=== PATIENT | female | born 1980 | race Caucasian/White ===

== ENCOUNTER 2024-10-14 14:39 | Emergency (ER) | payer MEDICAID, OTHER ==
[~2024-10-14] VITALS: Ht 157.5 cm; Wt 69.0 kg
[2024-10-14 14:41] VITALS: O2SAT 99
[2024-10-14 15:39] LABS: BASOPHILS % 0.6 % (0.0-2.0); EOSINOPHILS % 2.6 % (0.0-5.0); HEMATOCRIT. 36.3 % (36.0-48.0); HEMOGLOBIN. 12.2 g/dL (12.0-16.0); MEAN CORPUSCULAR HEMOGLOBIN 32.3 pg (28.0-32.0); MEAN CORPUSCULAR HGB CONC 33.6 g/dL (31.0-37.0); MEAN PLATELET VOLUME 7.8 fl (7.4-10.4); MONOCYTES % 7.3 % (2.0-8.0); NEUTROPHILS % 66.5 % (40.0-76.0); PLATELET 316 x1000/uL (130-400); RED BLOOD CELL COUNT 3.78 mill/uL (4.2-5.4); RED CELL DISTRIBUTION WIDTH 13.2 % (11.6-14.6); WHITE BLOOD COUNT 8.9 x1000/uL (4.5-11.0)
[2024-10-14 15:48] LABS: CHLORIDE 105 mEq/L (98-107); POTASSIUM 3.9 mEq/L (3.5-5.1); SODIUM 137 mEq/L (136-145)
[2024-10-14 15:49] LABS: CARBON DIOXIDE 26 mEq/L (21-32)
[2024-10-14 15:50] LABS: CALCIUM 9.7 mg/dL (8.7-10.4)
[2024-10-14 15:54] LABS: GLUCOSE 145 mg/dL (70-105); UREA NITROGEN BLOOD 12 mg/dL (9-23)
[2024-10-14 15:55] LABS: ETHANOL BLOOD < 10 mg/dL (<10)
[2024-10-14 15:55] LABS: CLARITY URINE CLEAR (CLEAR); COLOR URINE YELLOW (YELLOW); GLUCOSE URINE NEGATIVE (NEGATIVE); KETONES URINE NEGATIVE (NEGATIVE); LEUKOCYTE ESTERASE URINE TRACE (NEGATIVE); NITRITE URINE NEGATIVE (NEGATIVE); OCCULT BLOOD URINE NEGATIVE (NEGATIVE); PROTEIN URINE NEGATIVE (NEGATIVE); SPECIFIC GRAVITY URINE 1.009 (1.005-1.030); UROBILINOGEN URINE 0.2 E.U./dL (0.2-1.0)
[2024-10-14 15:56] LABS: ACETAMINOPHEN < 2 ug/mL (10-30)
[2024-10-14 16:14] LABS: *AMPHETAMINES SCREEN URINE NEGATIVE (NEGATIVE); *BARBITURATES SCREEN URINE NEGATIVE (NEGATIVE); *BENZODIAZEPINES SCREEN URINE NEGATIVE (NEGATIVE); *COCAINE SCREEN URINE NEGATIVE (NEGATIVE); CANNABINOID URINE SCREEN NEGATIVE (NEGATIVE); ECSTASY MDMA SCREEN URINE NEGATIVE (NEGATIVE); METHADONE URINE SCREEN NEGATIVE (NEGATIVE); OPIATES URINE SCREEN NEGATIVE (NEGATIVE); PHENCYCLIDINE URINE SCREEN NEGATIVE (NEGATIVE)
[2024-10-14 17:28] LABS: BACTERIA URINE TRACE; RBC URINE 0-2 /hpf (0-2); SQUAMOUS EPITHELIAL CELL URINE FEW /lpf (RARE/1+); WBC URINE 0-2 /hpf (0-2)
[2024-10-14 18:57] LABS: ALANINE AMINOTRANSFERASE 16 IU/L (10-49); ALBUMIN 4.2 g/dL (3.2-4.8); ASPARTATE AMINOTRANSFERASE 27 IU/L (<34); BILIRUBIN DIRECT 0.1 mg/dL (<=3.0)
[2024-10-14 18:58] LABS: BILIRUBIN TOTAL 0.5 mg/dL (0.1-1.0); PROTEIN TOTAL 7.6 g/dL (6.0-8.3)
[2024-10-14 19:12] LABS: HCG SCREEN NEGATIVE
[2024-10-14] MEDS ORDERED: LORAZEPAM 2MG/ML INJ IM ONE (22:45)
[2024-10-14] MEDS: LORAZEPAM 2MG/ML UD SYRINGE IM NR (22:55)
[2024-10-14] MEDS: IBUPROFEN 400MG TABLET PO ONE (22:55)
[2024-10-15] MEDS: OLANZAPINE 10 MG/VIAL IM ONE (03:33)
[2024-10-15] MEDS: HALOPERIDOL LACTATE 5MG/ML VIAL IM ONE ×2 (06:15→21:18)
[2024-10-15] MEDS: DIPHENHYDRAMINE 50MG/ML VIAL IM ONE (06:15)
[2024-10-15] MEDS: OLANZAPINE 5MG TABLET ODT PO ONE (11:02)
[2024-10-15] MEDS ORDERED: LITHIUM CARBONATE 150 MG CAPSULE PO STA (15:30)
[2024-10-15] MEDS ORDERED: HYDROXYZINE 25MG TABLET PO STA (15:30)
[2024-10-15] MEDS ORDERED: TRAZODONE HCL 50MG TABLET PO STA (15:30)
[2024-10-15] MEDS ORDERED: RISPERIDONE 1MG TABLET PO STA (15:30)
[2024-10-15] MEDS: HYDROXYZINE 25MG TABLET PO NR (16:19)
[2024-10-15] MEDS: TRAZODONE HCL 50MG TABLET PO NR (16:19)
[2024-10-15] MEDS: LITHIUM CARBONATE 150 MG CAPSULE PO NR (16:19)
[2024-10-15] MEDS: RISPERIDONE 1MG TABLET PO NR (16:19)
[2024-10-15] MEDS ORDERED: LORAZEPAM 2MG/ML INJ IM ONE (20:15)
[2024-10-15] MEDS: DIPHENHYDRAMINE 50MG/ML VIAL IM STA (21:18)
[2024-10-15] MEDS: LORAZEPAM 2MG/ML UD SYRINGE IM NR (21:18)
[2024-10-16] MEDS: ACETAMINOPHEN 500MG TABLET PO NR (11:15)
[2024-10-16] MEDS: LITHIUM CARBONATE 150 MG CAPSULE PO NR (12:15)
[2024-10-16] MEDS: HALOPERIDOL LACTATE 5MG/ML VIAL IM NR (12:15)
[2024-10-16] MEDS: POLYETHYLENE GLYCOL 3350 (17GM) 1 DOSE PACK PO ONE (13:15)
[2024-10-16] MEDS: HYDROXYZINE 25MG TABLET PO ONE (17:42)
[2024-10-16] MEDS: RISPERIDONE 1MG TABLET PO SCH ×2 (17:42→23:37)
[2024-10-16] MEDS: TRAZODONE HCL 50MG TABLET PO SCH (23:37)
[2024-10-17] MEDS: GABAPENTIN 400MG CAPSULE PO ONE (03:44)
[2024-10-17 06:00] VITALS: BP 115/66; PULSE 74; RESP 16; TEMP 36.8; O2SAT 98
== END 2024-10-17 11:07 | disposition home or self-care (01) ==
LOC: ER 14:39
DX: R45.851 Suicidal ideations (principal); Z86.59 Personal history of other mental and behavioral disorders; Z79.899 Other long term (current) drug therapy; Z20.822 Contact with and (suspected) exposure to COVID-19
CPT/HCPCS: 80076; 80305; 80048; 81003; 80307; 80329; 80320; 84703; 85025; 36415; 96372 ×2; 99285; 87426; J2060 ×2; Z7610 ×2; J3490; J1200; J1630 ×2; G0480